=== PATIENT | male | born 1995 | race Caucasian/White ===

== ENCOUNTER 2016-12-11 16:55 | Emergency (ER) | payer OTHER ==
[2016-12-11 19:57] LABS: HEMOGLOBIN 16.3 gm/dl (14.0-17.5); RED BLOOD COUNT 5.23 M/UL (4.20-5.50); WHITE BLOOD COUNT 10.1 K/UL (4.5-11.0)
[2016-12-11 20:18] LABS: BUN/CREATININE RATIO 17 (0-10)
== END 2016-12-11 22:31 | disposition home or self-care (01) ==
LOC: ER1 16:55
PROVIDERS: Family Medicine
DX: R10.11 Right upper quadrant pain (principal); R63.0 Anorexia; F17.200 Nicotine dependence, unspecified, uncomplicated
CPT/HCPCS: 36415; 80053; 81001; 82150; 83690; 84443; 85025; 87081; 87880; 96374; 96375; 99284; J1885; J2270; J2405; J7030; J7050; Q9962

== ENCOUNTER → 2016-12-19 | Outpatient (CLI) | payer OTHER | LOC: US 07:44 | DX: R10.11 Right upper quadrant pain (principal) | CPT/HCPCS: 76705 ==